=== PATIENT | male | born 1985 | race American Indian/Alaskan Native ===

== ENCOUNTER 2018-01-20 16:24 | Emergency (ER) | payer OTHER ==
--- NOTE | 2018-01-20 17:38 | EDM.PDOC ---
ED HPI GENERAL MEDICAL PROBLEM - General Chief Complaint: Lower Extremity Injury/Pain Stated Complaint: SMASHED TOE Time Seen by Provider: 01/20/18 16:50 Source of Information: Reports: Patient, Family History Limitations: Reports: No Limitations - History of Present Illness INITIAL COMMENTS - FREE TEXT/NARRATIVE: 32-year-old male slipped and struck the second toe on his left foot against the leg of a couch. It's very painful and is concerned it may be broken. No other injury. Onset: Sudden Duration: Hour(s): (Within the last hour and a half) Location: Reports: Lower Extremity, Left Severity: Mild Associated Symptoms: Reports: No Other Symptoms - Related Data Allergies Allergy/AdvReac Type Severity Reaction Status Date / Time No Known Allergies Allergy Verified 01/20/18 16:46 Home Meds: Home Meds NK [No Known Home Meds] 01/20/18 [History] Past Medical History - Past Surgical History GI Surgical History: Reports: Appendectomy Social & Family History - Tobacco Use Smoking Status *Q: Current Every Day Smoker Years of Tobacco use: 10 Packs/Tins Daily: 1 Review of Systems - Review of Systems Review Of Systems: ROS reveals no pertinent complaints other than HPI. ED EXAM, GENERAL - Physical Exam Exam: See Below Exam Limited By: No Limitations General Appearance: Alert, No Apparent Distress Respiratory/Chest: No Respiratory Distress Extremities: Other (Exam is limited to the left foot. There is tenderness to the PIP joint of the second toe with some slight swelling but no bruising or significant deformity) Neurological: Alert, Oriented Course - Vital Signs Last Recorded V/S: Last Vital Signs Temp 97.5 F 01/20/18 16:50 Pulse 62 01/20/18 16:50 Resp 20 01/20/18 16:50 BP 132/84 01/20/18 16:50 Pulse Ox 94 L 01/20/18 16:50 - Re-Assessments/Exams Free Text/Narrative Re-Assessment/Exam: 01/20/18 17:36 An x-ray of the toe was done and shows a possible fracture of the distal proximal phalanx, on one view. Patient can increase activity as tolerated. Patricia taping the toes may help but no other procedures needed. Departure - Departure Time of Disposition: 18:45 Disposition: Home, Self-Care 01 Condition: Good Clinical Impression: Phalanx fracture, foot Qualifiers: Encounter type: initial encounter Toe: lesser toe Fracture type: closed Phalanx : proximal Fracture alignment: nondisplaced Laterality: left Qualified Code(s): S92.515A - Nondisplaced fracture of proximal phalanx of left lesser toe(s), initial encounter for closed fracture - Discharge Information Instructions: Turf Toe Referrals: PCP,None [Primary Care Provider] - Forms: ED Department Discharge Care Plan Goals: Increase activity as tolerated, patricia tape the toe for comfort if it helps. Return for recheck if concerned that you are not healing satisfactorily.
--- NOTE | 2018-01-21 09:10 | CR ---
Toes Second Digit Rt T6 CLINICAL HISTORY: Pain, trauma FINDINGS: There is some irregularity of the distal aspect of the second toe proximal phalanx. IMPRESSION: Articular surfaces are intact Impression: Minimally angulated fracture of the second proximal phalanx .
== END 2018-01-20 18:05 | disposition home or self-care (01) ==
LOC: JP.ED 16:24
DX: S92.515A Nondisplaced fracture of proximal phalanx of left lesser toe(s), initial encounter for closed fracture (principal); F17.210 Nicotine dependence, cigarettes, uncomplicated; W01.190A Fall on same level from slipping, tripping and stumbling with subsequent striking against furniture, initial encounter
CPT/HCPCS: 73660-26-T6; 73660-T6; 99283; 99284